=== PATIENT | male | born 1945 | race Caucasian/White ===

== ENCOUNTER → 2016-10-23 | Outpatient (CLI) | payer MEDICARE ==
--- NOTE | 2016-10-24 09:21 | PCVCIMAG ---
APPROVED REPORT Study performed: 10/23/2016 08:52:48 EXAM: Comprehensive 2D, Doppler, and color-flow Echocardiogram Patient Location: Echo lab Status: routine BSA: 2.00 HR: 65 bpmBP: 146/84 mmHg Rhythm: NSR Other Information Study Quality: Good Indications Aortic Valve Disease CAD Aortic Valve Replacement 2D Dimensions LVEF(%): 40.40 (>50%) IVSd: 13.21 (7-11mm)LVOT Diam: 28.90 (18-24mm) LVDd: 53.03 mm PWd: 12.26 (7-11mm) LVDs: 42.49 (25-40mm) Left Atrium: 49.59 (27-40mm) Aortic Root: 30.59 mm LV Single Plane 4CH: 41.05 % LV Single Plane 2CH: 52.73 %[place]'s LVEF: 46.89 % Biplane EF: 47.6 % Volumes Left Atrial Volume (Systole) LA ESV Index: 46.00 mL/m2 Aortic Valve AoV Peak Shin.: 1.90 m/s AO Peak Gr.: 14.41 mmHgLVOT Max P.23 mmHg AO Mean Gr.: 7.00 mmHgLVOT Mean P.23 mmHg AO V2 Mean: 1.22 m/sLVOT Max V: 1.14 m/s AO V2 VTI: 38.53 cmLVOT Mean V: 0.69 m/s MARCO A (VTI): 3.84 [id number] V1 VTI: 22.53 cm MARCO A Vmax: 3.95 cm2 SV (LVOT): 147.76 mL Mitral Valve E/A Ratio: 2.7 MV Decel. Time: 174.94 ms MV E Max Shin.: 0.88 m/s MV A Shin.: 0.33 m/s IVRT: 96.89 ms Pulmonary Valve PV Peak Shin.: 1.55 m/sPV Peak Gr.: 9.60 mmHg Pulmonary Vein P Vein S: 0.63 m/sP Vein A: 0.49 m/s P Vein D: 1.08 m/sP Vein A Dur.: 141.9 msec P Vein S/D Ratio: 0.58 Tricuspid Valve TR Peak Shin.: 2.80 m/s TR Peak Gr.: 31.29 mmHg Left Ventricle The left ventricle is normal size. Mild concentric left ventricular hypertrophy. Left ventricular systolic function is mildly decreased. Hypokinesis involving base of inferior and inferoseptal forbes. LVEF is 45-50%. Grade II - pseudonormal filling dynamics. Right Ventricle The right ventricle is normal size. The right ventricular systolic function is normal. Atria The left atrium size is moderately dilated. The right atrium size is normal. Aortic Valve Normally functioning TAVR #29 [employer] pericardial valve. The prosthetic aortic valve appears normal. No aortic regurgitation is present. There is no aortic valvular stenosis. Mitral Valve The mitral valve is normal in structure. Mild mitral regurgitation. No evidence of mitral valve stenosis. Tricuspid Valve The tricuspid valve is normal in structure. Mild tricuspid regurgitation with PAP of 38 mmHg. Pulmonic Valve The pulmonary valve is normal in structure. There is no pulmonic valvular regurgitation. Great Vessels The aortic root is normal in size. IVC is normal in size and collapses with >50% inspiration Pericardium There is no pericardial effusion. <Conclusion> Left ventricular systolic function is mildly decreased. Hypokinesis involving base of inferior and inferoseptal forbes. LVEF is 45-50%. Grade II - pseudonormal filling dynamics. 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 No aortic regurgitation or stenosis The mitral valve is normal in structure. Mild mitral regurgitation. Mild tricuspid regurgitation with PAP of 38 mmHg. There is no pericardial effusion.
== END | disposition home or self-care (01) ==
LOC: PCVCIMAG 09:03
PROVIDERS: ATTEND Internal Medicine
DX: I08.1 Rheumatic disorders of both mitral and tricuspid valves (principal); I25.10 Atherosclerotic heart disease of native coronary artery without angina pectoris; I10 Essential (primary) hypertension; E78.00 Pure hypercholesterolemia, unspecified; Z95.2 Presence of prosthetic heart valve; Z95.4 Presence of other heart-valve replacement
CPT/HCPCS: 93306

== ENCOUNTER → 2018-09-02 | Outpatient (CLI) | payer MEDICARE | END | disposition home or self-care (01) | LOC: PCVCCLINIC 14:00 | PROVIDERS: ATTEND Internal Medicine | DX: I25.10 Atherosclerotic heart disease of native coronary artery without angina pectoris (principal); I65.23 Occlusion and stenosis of bilateral carotid arteries; I25.5 Ischemic cardiomyopathy; I73.9 Peripheral vascular disease, unspecified; E78.5 Hyperlipidemia, unspecified; Z95.2 Presence of prosthetic heart valve | CPT/HCPCS: 36415; 80061; G0463 ==

== ENCOUNTER → 2018-09-17 | Outpatient (CLI) | payer MEDICARE ==
--- NOTE | 2018-09-17 09:27 | PCVCIMAG ---
APPROVED REPORT Study performed: 09/17/2018 07:58:03 EXAM: Comprehensive 2D, Doppler, and color-flow Echocardiogram Patient Location: Echo lab Status: routine BSA: 1.95 HR: 76 bpmBP: 110/82 mmHg Rhythm: NSR w/ PVCs Other Information Study Quality: Adequate Indications CAD ischemic cardiomyopathy, #29 aortic valve replacement 2D Dimensions IVSd: 14.55 (7-11mm)LVOT Diam: 28.68 (18-24mm) LVDd: 42.74 mm PWd: 14.16 (7-11mm)Ascending Ao: 30.26 (22-36mm) LVDs: 34.98 (25-40mm) Left Atrium: 49.13 (27-40mm) Aortic Root: 31.85 mm LV Single Plane 4CH: 50.86 % LV Single Plane 2CH: 52.19 % Biplane EF: 51.7 % Volumes Left Atrial Volume (Systole) Single Plane 4CH: 88.63 mLSingle Plane 2CH: 123.79 mL LA ESV Index: 54.00 mL/m2 Aortic Valve AoV Peak Shin.: 2.22 m/s AO Peak Gr.: 19.73 mmHgLVOT Max P.72 mmHg AO Mean Gr.: 8.26 mmHgLVOT Mean P.50 mmHg AO V2 Mean: 1.27 m/sLVOT Max V: 1.14 m/s AO V2 VTI: 43.57 cmLVOT Mean V: 0.73 m/s MARCO A (VTI): 3.30 [id number] V1 VTI: 22.30 cm MARCO A Vmax: 3.32 cm2 SV (LVOT): 143.97 mL Mitral Valve E/A Ratio: 1.6 MV Decel. Time: 201.26 ms MV E Max Shin.: 0.69 m/s MV A Shin.: 0.43 m/s IVRT: 110.73 ms Pulmonary Valve PV Peak Shin.: 1.58 m/sPV Peak Gr.: 10.01 mmHg Pulmonary Vein P Vein S: 0.66 m/sP Vein A: 0.38 m/s P Vein D: 0.72 m/sP Vein A Dur.: 159.2 msec P Vein S/D Ratio: 0.92 Tricuspid Valve TR Peak Shin.: 2.56 m/s TR Peak Gr.: 26.21 mmHg Left Ventricle The left ventricle is normal size. Moderate concentric left ventricular hypertrophy. Left ventricular systolic function is normal. The left ventricular ejection fraction is within the normal range. LVEF is 50-55%. Mild diastolic dysfunction is present (impaired relaxation pattern). Right Ventricle The right ventricle is normal size. The right ventricular systolic function is normal. Atria Left atrium is dilated. Right atrium is mildly dilated. Aortic Valve Normally functioning TAVR #29 [employer] pericardail valve Trace aortic regurgitation. There is no aortic valvular stenosis. Mitral Valve Mild mitral annular calcification Mild mitral regurgitation. No evidence of mitral valve stenosis. Tricuspid Valve The tricuspid valve is normal in structure. Mild tricuspid regurgitation with PAP of 33 mmHg. Pulmonic Valve The pulmonary valve is normal in structure. There is no pulmonic valvular regurgitation. Great Vessels The aortic root is normal in size. IVC is normal in size and collapses >50% with inspiration. Pericardium There is no pericardial effusion. There is no pleural effusion. <Conclusion> Left ventricular systolic function is normal. LVEF is 50-55%. Mild diastolic dysfunction Left atrium is dilated. Normally functioning TAVR #29 [employer] pericardail valve. Trace aortic regurgitation. Mild mitral annular calcification. Mild mitral regurgitation. Mild tricuspid regurgitation with pulmonary artery pressure of 33 mmHg. There is no pericardial effusion.
== END | disposition home or self-care (01) ==
LOC: PCVCIMAG 07:45
PROVIDERS: ATTEND Internal Medicine
DX: I25.10 Atherosclerotic heart disease of native coronary artery without angina pectoris (principal); I25.5 Ischemic cardiomyopathy; Z95.2 Presence of prosthetic heart valve
CPT/HCPCS: 93306